=== PATIENT | female | born 1960 | race Two or more races ===

== ENCOUNTER 2016-05-08 21:47 | Emergency (ER) | payer MEDICAID ==
[~2016-05-08] VITALS: Ht 160 cm; Wt 83.9 kg
[2016-05-08 22:35] VITALS: BP 121/75
[2016-05-08] MEDS ORDERED: IPRATROPIUM BROM 0.5 MG/2.5ML INH SOL NEB ONE (23:00)
[2016-05-08] MEDS ORDERED: ALBUTEROL SULF 2.5 MG/0.5ML(0.5%) NEB SOLN NEB ONE (23:00)
[2016-05-09] MEDS ORDERED: FUROSEMIDE 20 MG/2 ML VIAL IV ONE (00:15)
== END 2016-05-09 00:47 | disposition home or self-care (01) ==
LOC: EDBD 21:47 → ER 21:50
DX: J70.5 Respiratory conditions due to smoke inhalation (principal); E78.5 Hyperlipidemia, unspecified
CPT/HCPCS: 71010; 94640; 96374; 99284; J1940

== ENCOUNTER → 2023-06-14 | Outpatient (CLI) | payer MEDICAID | END | disposition home or self-care (01) | LOC: Rad HDHVI 13:56 | PROVIDERS: ATTEND Internal Medicine Cardiovascular Disease | DX: I51.7 Cardiomegaly (principal); R07.89 Other chest pain | CPT/HCPCS: 93306 ==

== ENCOUNTER → 2023-06-19 | Outpatient (CLI) | payer MEDICAID ==
[~2023-06-19] VITALS: Ht 160 cm; Wt 93.0 kg
== END | disposition home or self-care (01) ==
LOC: Rad HDHVI 12:49
PROVIDERS: ATTEND Internal Medicine Cardiovascular Disease
DX: Z01.810 Encounter for preprocedural cardiovascular examination (principal); R07.89 Other chest pain; E78.00 Pure hypercholesterolemia, unspecified; Z79.899 Other long term (current) drug therapy
CPT/HCPCS: 78452; 93017; 96374; A9500